=== PATIENT | female | born 1945 | race Caucasian/White ===

== ENCOUNTER 2021-12-10 07:17 | Emergency (ER) | payer OTHER, BC ==
[~2021-12-10] VITALS: Ht 157.5 cm; Wt 78.0 kg
[2021-12-10] MEDS ORDERED: ATOR10 PO (07:39)
[2021-12-10] MEDS ORDERED: TRAZ50 PO (07:39)
[2021-12-10] MEDS ORDERED: Prinivil10 MG PO (07:39)
[2021-12-10] MEDS ORDERED: HYDCHL25 PO (07:39)
[2021-12-10] MEDS ORDERED: Boniva150 MG PO (07:40)
[2021-12-10] MEDS ORDERED: OXAYDO5 M1 PO (10:58)
[2021-12-10] MEDS ORDERED: Acetaminophen500 MG PO (10:58)
[2021-12-10] MEDS ORDERED: IBUP600 PO (10:58)
[2021-12-10] MEDS ORDERED: METSALMENC TOP (11:00)
== END 2021-12-10 11:12 | disposition home or self-care (01) ==
LOC: ER 07:17
DX: S32.010A Wedge compression fracture of first lumbar vertebra, initial encounter for closed fracture (principal); S20.222A Contusion of left back wall of thorax, initial encounter; I10 Essential (primary) hypertension; Z79.899 Other long term (current) drug therapy; W00.1XXA Fall from stairs and steps due to ice and snow, initial encounter
CPT/HCPCS: 71101; 72070; 72100; 96372; 99283-25; A9270; J1885